=== PATIENT | male | born 1970 | race Caucasian/White ===

== ENCOUNTER 2017-03-19 01:34 | Emergency (ER) | payer OTHER ==
[~2017-03-19] VITALS: Ht 175.3 cm; Wt 106.6 kg
[~2017-03-19 01:34] MED LIST: CYCLOBENZAPRINE5 M2 PO; IBUPROFEN800 M1 PO
[2017-03-19 01:54] VITALS: BP 119/86
--- NOTE | 2017-03-19 02:04 | ED NECK/BACK PAIN COMPLAINT ---
History of Present Illness General Chief Complaint: Neck/Upper Back Pain/Injury Stated Complaint: "BACK PAIN WORK RELATED" Source: patient, old records, friend Exam Limitations: no limitations Vital Signs & Intake/Output Vital Signs & Intake/Output Vital Signs Date Time Temp Pulse Resp B/P B/P Pulse O2 O2 Flow FiO2 Mean Ox Delivery Rate 03/19 0154 98.1 84 16 119/86 98 Room Air Allergies Coded Allergies: Penicillins (UNKNOWN 03/19/17) amoxicillin (UNKNOWN 03/19/17) Reconcile Medications Cyclobenzaprine HCl 5 MG TABLET 1 TAB PO TIDPRN PRN pain Ibuprofen 800 MG TABLET 1 TAB PO TID PRN pain Triage Note: 46YO MALE TO TRIAGE W/CO LOW BACK PAIN SP 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 Triage Nurses Notes Reviewed? yes HPI: Patient injured his right lower back all at work. Patient has an aching throbbing pain in his right lower back that radiates towards his right buttocks. Pain increases with movement. There is no radiation into his leg. There is no weakness or numbness. There is no incontinence of bowel or bladder. He rates the pain as moderate on the scale. Patient has no other complaints. Past History Travel History Traveled to [place] past 21 day No Medical History Any Pertinent Medical History? see below for history Neurological: NONE EENT: NONE Cardiovascular: hyperlipidemia Respiratory: NONE Gastrointestinal: NONE Hepatic: NONE Renal: NONE Musculoskeletal: NONE Psychiatric: NONE Endocrine: NONE Blood Disorders: . Surgical History Surgical History: none Psychosocial History What is your primary language Amharic Tobacco Use: Never used ETOH Use: occasional use Illicit Drug Use: denies illicit drug use Family History Hx Contributory? No Review of Systems Review of Systems Constitutional: Reports: no symptoms. Ears, Nose, Throat, Mouth: Reports: no symptoms. Respiratory: Reports: no symptoms. Cardiovascular: Reports: no symptoms. Musculoskeletal: Reports: see HPI, back pain. Neurological/Psychological: Reports: no symptoms. Physical Exam Physical Exam General Appearance: well developed/nourished, alert, awake, mild distress Head: atraumatic, normal appearance Eyes: Bilateral: PERRL, EOMI. Neck: normal inspection, supple, full range of motion, no midline tenderness Back: normal inspection, muscle spasm, no vertebral tenderness Extremities: non-tender Straight Leg Raising: Right: Negative. Left: Negative. Neurologic/Psych: no motor/sensory deficits, awake, alert, oriented x 3, normal gait, normal mood/affect Core Measures CVA/TIA Diagnosis: No Progress Differential Diagnosis: herniated disc, myofascial strain Plan of Care: Current Medications Sig/Marlene Start time Last Medication Dose Stop Time Status Admin Cyclobenzaprine HCl 10 MG ONCE ONE 03/19 214 AC (Flexeril 10MG Tab) 03/19 215 Ketorolac 60 MG ONCE ONE 03/19 214 AC Tromethamine 03/19 215 (Toradol) Departure Departure Disposition: HOME OR SELF CARE Condition: Stable Clinical Impression Primary Impression: Back pain Secondary Impressions: Muscle spasm Referrals: Benedicto ALVAREZ,[place] (PCP/Family) Additional Instructions: USE MOIST HEAT TAKE FELXERIL NEEDED FOR PAIN OR SPASM TAKE MOTRIN NEEDED FOR PAIN RETURN IF SYMPTOMS WORSEN OR FOR ANY CONCERNS Departure Forms: Customer Survey General Discharge Information Industrial Accident Report
== END 2017-03-19 02:18 ==
LOC: ERH 01:34
DX: M54.5 Low back pain (principal); M62.830 Muscle spasm of back; X58.XXXA Exposure to other specified factors, initial encounter; Y93.9 Activity, unspecified; Y92.9 Unspecified place or not applicable
CPT/HCPCS: 96372; J1885